=== PATIENT | male | born 1995 | race Caucasian/White ===

== ENCOUNTER 2019-03-15 11:16 | Emergency (ER) | payer BC ==
[~2019-03-15] VITALS: Ht 185.4 cm; Wt 55.4 kg
[2019-03-15 13:10] LABS: CLARITY URINE CLEAR (CLEAR); COLOR URINE YELLOW (YELLOW); KETONES URINE NEGATIVE (NEGATIVE); LEUKOCYTE ESTERASE URINE NEGATIVE (NEGATIVE); NITRITE URINE NEGATIVE (NEGATIVE); OCCULT BLOOD URINE NEGATIVE (NEGATIVE); PH URINE 7.5 (4.5-8.0); PROTEIN URINE NEGATIVE (NEGATIVE); SPECIFIC GRAVITY URINE 1.008 (1.005-1.030)
[2019-03-15] MEDS ORDERED: CLONAZEPAM 1MG TABLET PO ONE (13:15)
[2019-03-15] MEDS ORDERED: ONDANSETRON 4MG ODT PO ONE (13:15)
[2019-03-15] MEDS ORDERED: IBUPROFEN 600MG TABLET PO ONE (13:15)
[2019-03-15 13:40] LABS: *AMPHETAMINES SCREEN URINE NEGATIVE (NEGATIVE); *BARBITURATES SCREEN URINE NEGATIVE (NEGATIVE); *BENZODIAZEPINES SCREEN URINE NEGATIVE (NEGATIVE)
[2019-03-15 13:41] LABS: *COCAINE SCREEN URINE NEGATIVE (NEGATIVE); CANNABINOID URINE SCREEN PRESUMTIVE POSITIVE (NEGATIVE); METHADONE URINE SCREEN NEGATIVE (NEGATIVE); PHENCYCLIDINE URINE SCREEN NEGATIVE (NEGATIVE)
[2019-03-15] MEDS ORDERED: LIDOCAINE HCL/PF 1% 10 MG/ML 5ML VIAL IJ ONE (13:45)
[2019-03-15] MEDS ORDERED: BACITRACIN ZINC OINT UDPKT TOP ONE (13:45)
[2019-03-15 13:47] LABS: OPIATES URINE SCREEN PRESUMTIVE POSITIVE (NEGATIVE)
[2019-03-15] MEDS ORDERED: BACITRACIN 15GM TUBE TOP NR (14:30)
[2019-03-15 15:30] VITALS: BP 122/78
== END 2019-03-15 15:31 | disposition home or self-care (01) ==
LOC: ER 12:33
DX: F11.23 Opioid dependence with withdrawal (principal); L03.031 Cellulitis of right toe
CPT/HCPCS: 80305; 81003; 99284; J3490; Q0162; Z7610